=== PATIENT | female | born 1965 | race American Indian/Alaskan Native ===

== ENCOUNTER 2017-02-11 06:10 | Day surgery (SDC) | payer MEDICAID ==
[~2017-02-11 06:10] MED LIST: VERSED IV NR
[2017-02-11] MEDS ORDERED: PEPCID PO NR (07:00)
[2017-02-11] MEDS ORDERED: DIPRIVAN 10 MG/ML IV ONE (07:09)
[2017-02-11] MEDS ORDERED: SUBLIMAZE ONE (07:09)
[2017-02-11] MEDS ORDERED: XYLOCAINE MPF 2% ONE (07:11)
[2017-02-11] MEDS ORDERED: DECADRON ONE (07:11)
[2017-02-11] MEDS ORDERED: ZOFRAN ONE (07:11)
[2017-02-11] MEDS ORDERED: NACL BACTERIOSTATIC INFILTRATI ONE (07:28)
[2017-02-11] MEDS ORDERED: MARCAINE 0.5% 30 ML INFILTRATI ONE (07:37)
--- NOTE | 2017-02-11 07:44 | Anesthesia Consultation ---
Anesthesia Consult and Med Hx Date of service: 02/11/17 - Airway Anesthetic Teeth Evaluation: Poor ROM Head & Neck: Adequate Mental/Hyoid Distance: Adequate Mallampati Class: Class I Intubation Access Assessment: Good - Pulmonary Exam CTA: Yes - Cardiac Exam Cardiac Exam: RRR - Pre-Operative Health Status ASA Pre-Surgery Classification: ASA3 Proposed Anesthetic Plan: General - Pulmonary Hx Smoking: Yes (1/2PPD X 10 YRS) Hx Asthma: Yes (NO MEDS) Hx Sleep Apnea: No (ROSANNA PRE SCREEN HIGH RISK) - Cardiovascular System Hx Hypertension: No - Hematic Hx Anemia: Yes - Other Systems Hx Substance Use: Yes (COCAINE/MARIJUANA- STOPPED X 20 YRS) Hx Cancer: No - Additional Comments Anesthesia Medical History Comments: HIV, Hepititis- non viral per patient history
--- NOTE | 2017-02-11 07:45 | Anesthesia Day of Surgery ---
Anesthesia Day of Surgery - Day of Surgery Patient Examined: Yes Patient H&P Reviewed: Yes Patient is NPO: Yes
[2017-02-11] MEDS ORDERED: VERSED IV NR (08:00)
[2017-02-11] MEDS ORDERED: ceFAZolin 2 GM in NACL 0.9% 100 ML IV ONE (08:00)
[2017-02-11] MEDS ORDERED: ANCEF/STERILE WATER 2 GM/20 ML 2 GM/20 ML SYRINGE IV NR (08:00)
[2017-02-11] MEDS ORDERED: NACL 0.9% 1000 ML 1,000 ML IV SCH (08:00)
[2017-02-11] MEDS ORDERED: NACL 0.9% IR ONE (08:18)
[2017-02-11] MEDS ORDERED: MARCAINE-EPI 0.5%-1:200,000 INFILTRATI ONE ×2 (08:18→08:40)
--- NOTE | 2017-02-11 09:12 | Discharge Summary ---
Short Stay Discharge Plan Activity: other (november d/c when stable. keep dressings dry x 3 days. d/c ned wrap & packing Fri am. begin cleaning wd with soap & water then. cover with large square band aid qd) Weight Bearing Status: Partial Weight Bearing Diet: regular Wound: other Additional Instructions: aleve I po q 6-8 hrs prn for breakthrough pain Follow up with: UBALDO FISHER MD [Staff Physician] - 02/17/17
[2017-02-11 10:42] VITALS: BP 120/75
--- NOTE | 2017-02-11 13:52 | Operative Report ---
PREOPERATIVE DIAGNOSIS: Subcutaneous left elbow nodule. POSTOPERATIVE DIAGNOSIS: Subcutaneous left elbow nodule. Grossly this appears to be a sebaceous cyst, pending final pathology. PROCEDURE: Excision of aforementioned nodule. SURGEON: Lee Peacock MD ANESTHESIA: 0.5% Marcaine with epinephrine and IV sedation. COMPLICATIONS: No complications. DESCRIPTION OF PROCEDURE: The patient was taken up to the operating room, prepped and draped in the usual sterile fashion. The subcutaneous left elbow nodule was clearly visible over the aforementioned area mentioned. A 0.5% Marcaine with epinephrine was infiltrated over the entire area. A 15 blade was used to make an elliptical incision over the dome of the nodule. Double skin hooks were used to retract the skin. Needle tip electrocautery as well as sharp and blunt dissection were used to remove the nodule in its entirety. Some ____ was noted within the capsule of the nodule. The specimen was sent fresh to pathology for aerobic and anaerobic cultures as well as permanent pathology. The area was irrigated copiously with saline. I checked for hemostasis and noted to be dry. The outer most portions of the incision were closed with interrupted 4-0 Prolene. The center core was packed with quarter inch iodoform gauze. A 2 x 2s, Tegaderm, Osiel and an Michael wrap were placed. The patient tolerated the procedure well and left OR in stable condition. JOB# [id number] JOSE/VICK
== END 2017-02-11 11:10 | disposition home or self-care (01) ==
LOC: OR 06:10
PROVIDERS: ATTEND Surgery
DX: L72.0 Epidermal cyst (principal); J45.909 Unspecified asthma, uncomplicated; D64.9 Anemia, unspecified; F17.210 Nicotine dependence, cigarettes, uncomplicated; F12.21 Cannabis dependence, in remission; F14.21 Cocaine dependence, in remission; Z86.19 Personal history of other infectious and parasitic diseases; Z88.1 Allergy status to other antibiotic agents; Z88.5 Allergy status to narcotic agent; Z88.8 Allergy status to other drugs, medicaments and biological substances; Z88.6 Allergy status to analgesic agent
CPT/HCPCS: 11402; 81025; 87075; 87116; 88304; J0690; J1100; J2250; J2405; J2704; J3010; J7030

== ENCOUNTER 2022-03-21 07:35 | Emergency (ER) | payer MEDICAID ==
[2022-03-21 08:27] VITALS: BP 132/88
[2022-03-21 09:18] LABS: Bacteria,Urine 1+ /HPF (Negative); Mucus,Urine FEW /HPF
[2022-03-21 09:26] LABS: Color,Urine Yellow (Yellow)
[2022-03-21 10:17] LABS: Basophils # (Auto) 0.1 K/mm3 (0.0-0.1); Basophils % (Auto) 0.6 % (0.0-1.8); Eosinophils # (Auto) 0.1 K/mm3 (0.0-0.4); Eosinophils % (Auto) 0.9 % (0.0-4.3); Hemoglobin 13.1 gm/dl (10.1-14.3); Lymphocytes # (Auto) 2.4 K/mm3 (1.2-5.4); Lymphocytes % (Auto) 29.2 % (13.4-35.0); Mean Corpuscular HGB Conc 33 % (30-34); Mean Corpuscular Volume 98 fl (79-97); Monocytes # (Auto) 0.4 K/mm3 (0.0-0.8); Monocytes % (Auto) 5.2 % (0.0-7.3); Platelet Count 191 K/mm3 (140-440); Red Cell Distribution Width 14.3 % (13.2-15.2)
[2022-03-21 10:35] LABS: Blood Urea Nitrogen 9 mg/dL (7-17); Calcium 9.4 mg/dL (8.4-10.2); Hemolysis Index 6
--- NOTE | 2022-03-21 10:36 | Emergency Department Report ---
ED Abdominal Pain HPI - General Chief Complaint: Abdominal Pain Stated Complaint: PAIN LOWER AB/PELVIC PUI?: No Time Seen by Provider: 03/21/22 09:18 Source: patient Mode of arrival: Ambulatory Limitations: No Limitations - History of Present Illness Initial Comments: 56 yo comes to ER with b lower abd pain since Friday. No dysuria no n/v/d no fever/ chills no vag bleed no discharge no co STI no back pain LMP when she was in 's she had IUD in for 14 years and then when it was removed she was in menopause ambulatory nad taking po in ER pt had HIV meds changed 2 months ago due to availability she sees them q6m Complaint: abdominal pain Severity scale (0 -10): 6 Associated Symptoms: denies other symptoms. denies: nausea, vomiting, diarrhea, fever, chills, constipation, dysuria, hematemesis, hematochezia, melena, hematuria, anorexia, syncope - Related Data Home Medications Medication Instructions Recorded Confirmed Last Taken Emtricitabine/Tenofovir (Tdf) 1 each PO DAILY 02/06/17 02/06/17 02/10/17 [Truvada 133 mg-200 mg Tablet] Ibuprofen [Motrin 800 MG tab] 800 mg PO PRN PRN 02/06/17 02/11/17 02/07/17 Insentress 1 tab PO BID 02/06/17 02/06/17 02/10/17 Lopinavir/Ritonavir [Kaletra 2 tab PO BID 02/06/17 02/06/17 02/10/17 200-50 mg Tablet] Previous Rx's Medication Instructions Recorded Last Taken Type HYDROcodone/APAP 5-325 [[place] 1 - 2 each PO Q4HR PRN #20 tablet 02/11/17 Unknown Rx 5/325] Allergies Allergy/AdvReac Type Severity Reaction Status Date / Time azithromycin [From Zithromax] Allergy INCREASED Verified 02/10/17 15:03 HEART RATE morphine Allergy Vomiting Verified 02/10/17 15:03 naproxen [From Naprosyn] Allergy INCREASED Verified 02/10/17 15:03 HEART RATE tramadol Allergy INCREASED Verified 02/10/17 15:03 HEART RATE ED Review of Systems ROS: Stated complaint: PAIN LOWER AB/PELVIC Other details as noted in HPI Comment: All other systems reviewed and negative ED Past Medical Hx - Past Medical History Previous Medical History?: Yes Hx Hypertension: No Hx Asthma: Yes Hx HIV: Yes (sees [facility] on [address]) Additional medical history: colonoscopy normal 2020 - Surgical History Past Surgical History?: Yes Hx Cholecystectomy: Yes Hx Appendectomy: Yes - Family History Family history: no significant - Social History Smoking Status: Current Every Day Smoker Substance Use Type: Alcohol - Medications Home Medications: Home Medications Medication Instructions Recorded Confirmed Last Taken Type Emtricitabine/Tenofovir (Tdf) 1 each PO DAILY 02/06/17 02/06/17 02/10/17 History [Truvada 133 mg-200 mg Tablet] Ibuprofen [Motrin 800 MG tab] 800 mg PO PRN PRN 02/06/17 02/11/17 02/07/17 History Insentress 1 tab PO BID 02/06/17 02/06/17 02/10/17 History Lopinavir/Ritonavir [Kaletra 2 tab PO BID 02/06/17 02/06/17 02/10/17 History 200-50 mg Tablet] HYDROcodone/APAP 5-325 [[place] 1 - 2 each PO Q4HR PRN #20 tablet 02/11/17 Unknown Rx 5/325] ED Physical Exam - General Limitations: No Limitations General appearance: alert, in no apparent distress - Head Head exam: Present: atraumatic, normocephalic - Eye Eye exam: Present: normal appearance - ENT ENT exam: Present: mucous membranes moist - Neck Neck exam: Present: normal inspection - Respiratory Respiratory exam: Present: normal lung sounds bilaterally. Absent: respiratory distress - Cardiovascular Cardiovascular Exam: Present: regular rate, normal rhythm. Absent: systolic murmur, diastolic murmur, rubs, gallop - GI/Abdominal GI/Abdominal exam: Present: soft, normal bowel sounds - Extremities Exam Extremities exam: Present: normal inspection - Back Exam Back exam: Present: normal inspection - Neurological Exam Neurological exam: Present: alert, oriented X3 - Psychiatric Psychiatric exam: Present: normal affect, normal mood - Skin Skin exam: Present: warm, dry, intact, normal color. Absent: rash ED Course Vital Signs 03/21/22 08:19 Temperature 99 F Pulse Rate 61 Respiratory 16 Rate Blood Pressure 132/88 [Right] O2 Sat by Pulse 99 Oximetry - Reevaluation(s) Reevaluation #1: 03/21/22 12:18 meds carmina herrmann presilveriocobix tivicay ED Medical Decision Making - Lab Data Result diagrams: 03/21/22 09:24 03/21/22 09:24 - Radiology Data Radiology results: report reviewed, image reviewed see report - Medical Decision Making Vital Signs 03/21/22 08:19 Temperature 99 F Pulse Rate 61 Respiratory 16 Rate Blood Pressure 132/88 [Right] O2 Sat by Pulse 99 Oximetry Labs 03/21/22 03/21/22 03/21/22 08:37 09:24 09:24 WBC 8.2 RBC 4.10 Hgb 13.1 Hct 40.0 MCV 98 H MCH 32 MCHC 33 RDW 14.3 Plt Count 191 Lymph % (Auto) 29.2 [place] % (Auto) 5.2 Eos % (Auto) 0.9 Baso % (Auto) 0.6 Lymph # (Auto) 2.4 [place] # (Auto) 0.4 Eos # (Auto) 0.1 Baso # (Auto) 0.1 Seg Neutrophils % 64.1 Seg Neutrophils # 5.2 Sodium 140 Potassium 4.3 Chloride 104.8 Carbon Dioxide 29 Anion Gap 11 BUN 9 Creatinine 0.7 Estimated GFR > 60 BUN/Creatinine Ratio 13 Glucose 87 Calcium 9.4 Urine Color Yellow Urine Turbidity Cloudy Specific [place] (Man) 1.020 Ur Protein (Man) 1+ Ur Ketones (Man) Negative Ur Nitrite (Man) Negative Ur Reducing Substances Not Reportable Urine Bilirubin (Man) Negative Urine Ictotest Not Reportable Leukocyte Esterase (Man) Trace Urine WBC (Auto) 5.0 Urine RBC (Auto) 6.0 U Epithel Cells (Auto) 4.0 Urine Bacteria (Auto) 1+ Urine RBC (Manual) Trace Urine Mucus Few abd exam benign ua noted labs noted pt refusing fluids/meds ambulatory and taking po CT noted I've discussed CT with pt and she will call her ID and follow up today WBC normal no tachycardia no hypotension no fever or chills taking po CT on disc provided to pt dc home with dc plan of care including diet, meds, activity and follow up she verbalizes understanding of plan of care - Differential Diagnosis ro uti/preg/infection Critical care attestation.: If time is entered above; I have spent that time in minutes in the direct care of this critically ill patient, excluding procedure time. ED Disposition Clinical Impression: Abdominal pain, Hx of human immunodeficiency virus infection Disposition: HOME / SELF CARE / HOMELESS Is pt being admited?: No Does the pt Need Aspirin: No Condition: Stable Instructions: Abdominal Pain (ED) Additional Instructions: follow up with ID MD monzon take records with you to his office; including disc follow up with pcp and obgyn as we discussed Referrals: PRIMARY MD DEMETRIS [Primary Care Provider] - 3-5 Days ANGELA SMITH MD [Staff Physician] - 3-5 Days Forms: Work/School Release Form(ED) Time of Disposition: 12:19
[2022-03-21] MEDS ORDERED: SODIUM CHLORIDE 0.9% 1000 ML 1,000 ML IV ONE (10:45)
[2022-03-21 10:46] LABS: BUN/Creatinine Ratio 13
--- NOTE | 2022-03-21 11:55 | Cat Scan Report ---
CT ABDOMEN AND PELVIS WITH CONTRAST INDICATION / CLINICAL INFORMATION: abd pain. TECHNIQUE: Axial CT images were obtained through the abdomen and pelvis after 100 mL Omnipaque [address] scans at this location are performed using CT dose reduction for ALARA by means of automated exposure control. COMPARISON: None available. FINDINGS: LOWER CHEST: Mild subsegmental platelike atelectasis or scarring within the right middle lobe, rehab specialist ior right lung base and inferior lingula. No other acute lower chest process. LIVER: No significant abnormality. GALLBLADDER/BILIARY: Cholecystectomy. PANCREAS: Fatty atrophy without acute process. SPLEEN: No significant abnormality. ADRENALS: Left adrenal nodule measuring 2.3 cm in diameter with relative hypoattenuation. Findings ar e most suggestive of an adrenal adenoma, but not definitively diagnostic by single phase technique. T here is also bilateral adenomatous hyperplasia of the adrenal glands. KIDNEYS/URETERS: Simple appearing renal cysts. No urolithiasis, hydronephrosis, solid renal mass or other acute process. GI: No acute bowel inflammation, obstruction or evidence for ischemia. APPENDIX: No significant abnormality. PERITONEUM: No pneumoperitoneum, free peritoneal fluid or loculated fluid collection. LYMPH NODES: Several mildly prominent retroperitoneal lymph nodes without evidence for pathologic enl argement. Index periaortic lymph node measures 7 mm in short axis diameter (series 2, image 74). Ther e are also mildly enlarged iliac, pelvic sidewall and inguinal lymph nodes. Index left anterior pelvi c lymph node measures 1.2 cm in short axis diameter (series 2, image 150). AORTA / ARTERIES: Mild atherosclerotic calcification without acute abnormality. URINARY BLADDER: No significant abnormality. REPRODUCTIVE ORGANS: No significant abnormality. SKELETAL SYSTEM: No acute or destructive osseous process. ADDITIONAL FINDINGS: Numerous small pelvic phleboliths. IMPRESSION: 1. No acute abdominopelvic process. 2. Numerous mildly enlarged retroperitoneal and pelvic lymph nodes, as detailed above, which are most likely reactive. Correlation with CBC, differential and peripheral smear may be warranted to complet miranda exclude a lymphoproliferative process. 3. Small left adrenal nodule, most likely representing a benign adrenal adenoma. Follow-up CT abdomen adrenal protocol recommended in one year. 4. Other mild chronic incidental findings, as detailed above. Signer Name: Guy Schmidt MD Signed: 03/21/2022 11:50 AM Workstation Name: [id number]
== END 2022-03-21 12:34 | disposition home or self-care (01) ==
LOC: ED 07:35
DX: R10.30 Lower abdominal pain, unspecified (principal); Z21 Asymptomatic human immunodeficiency virus [HIV] infection status; J45.909 Unspecified asthma, uncomplicated; F17.200 Nicotine dependence, unspecified, uncomplicated; Z90.49 Acquired absence of other specified parts of digestive tract; Z91.09 Other allergy status, other than to drugs and biological substances
CPT/HCPCS: 36415; 74177; 80048; 81001; 85025; 99284; J7030; Q9967